=== PATIENT | male | born 1985 | race Caucasian/White ===

== ENCOUNTER 2023-09-20 14:31 | Outpatient (CLI) | payer BC, SELFPAY ==
--- NOTE | ~2023-09-20 | XR_ITS ---
[id number] 09/20/2023 14:47 Indication: Neck pain Procedure: 4 views cervical spine Comparison: No prior studies Findings: Normal cervical alignment. Vertebral body heights are maintained. No fracture or traumatic malalignment. There is mild uncinate hypertrophy at C3-4 and C4-5. No prevertebral soft tissue swelli ng. Odontoid process is normal. Lung apices are normal. Impression: 1: Mild cervical spondylosis. Reviewed, dictated and finalized at location L. Impression: 1: Mild cervical spondylosis.
[2023-09-20 19:16] LABS: Alanine Aminotransferase 27 U/L (6-50); Albumin Level 4.8 g/dL (3.5-5.1); Alkaline Phosphatase 54 U/L (38-126); Anion Gap 8 mmol/L (4-12); Aspartate Amino Transferase 49 U/L (17-59); Bilirubin,Total 0.7 mg/dL (0.2-1.3); Blood Urea Nitrogen 12 mg/dL (9-20); Calcium 9.5 mg/dL (8.4-10.2); Carbon Dioxide 27 mmol/L (22-30); Chloride 103 mmol/L (98-107); Cholesterol 201 mg/dL (0-200); Estimated Glomerular Filt Rate > 60; Glucose 83 mg/dL (65-110); HDL Direct 41 mg/dL; Potassium 3.9 mmol/L (3.4-5.0); Sodium 138 mmol/L (137-145); Triglycerides 189 mg/dL (<150)
[2023-09-20 19:26] LABS: LDL Cholesterol Direct 125 mg/dL
[2023-09-20 19:34] LABS: Hematocrit 47.1 % (42.0-52.0); Hemoglobin 15.4 g/dL (14.0-18.0); Mean Corpuscular HGB Conc 32.7 g/dl (32-36); Mean Corpuscular Hemoglobin 30.5 pg (26-34); Mean Corpuscular Volume 93.3 fl (80-100); Mean Platelet Volume 9.6 fl (7.4-10.4); Platelet Count Result 433 k/mm3 (150-375); Red Blood Count 5.05 M/mm3 (4.6-6.20); Red Cell Distribution Width 13.3 % (11.5-14.5); White Blood Count 9.3 K/mm3 (4.5-10.0)
[2023-09-20 19:41] LABS: Thyroid Stimulating Hormone 0.668 uIU/mL (0.465-4.680)
== END 2023-09-20 14:32 | disposition home or self-care (01) ==
PROVIDERS: PCP Nurse Practitioner Adult Health; Visit Provider Nurse Practitioner Adult Health
DX: Z13.9 Encounter for screening, unspecified (principal); M54.2 Cervicalgia; M43.02 Spondylolysis, cervical region
CPT/HCPCS: 36415; 72040; 80053; 80061; 84443; 85027

== ENCOUNTER 2024-05-19 16:05 | Emergency (ER) | payer BC, SELFPAY ==
--- NOTE | ~2024-05-19 | XR_ITS ---
XR hand RT min 3V Ordering provider: Nenita Jason APRN History: . pain rt hand, 4th metacarpal, injury . Comparison: None. FINDINGS: BONES: No acute fracture or dislocation. JOINT SPACES: Normal. SOFT TISSUES: Normal. IMPRESSION: No acute osseous abnormality right hand. Reviewed, dictated and finalized at location A. 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
[2024-05-19 16:10] VITALS: BP 168/90; PULSE 87; RESP 16; TEMP 36.3; O2SAT 99
--- NOTE | 2024-05-19 16:34 | ED_ITS ---
HPI - Extremity Injury (Upper) General Chief Complaint: Extremity Injury, Upper Stated Complaint: RT hand injury Time Seen by Provider: 05/19/24 16:20 Source: patient, RN notes reviewed and old records reviewed Mode of arrival: ambulatory Limitations: no limitations History of Present Illness HPI narrative: patient presents with complaints of right hand pain and swelling that has been present for 2 weeks. He reports that hand got caught in a rope that was tightening 2 weeks ago, he has had pain and mild swelling since. He has been taking ibuprofen with minimal relief. He retains full range of motion and s ensation to the affected hand. He voices no other concerns or complaints at this time. He he denies other injury and trauma. Related Data Allergies Allergy/AdvReac Type Severity Reaction Status Date / Time acetaminophen [From Percocet] AdvReac Severe Hallucinati Verified 05/19/24 16:34 ng oxycodone [From Percocet] AdvReac Severe Hallucinati Verified 05/19/24 16:34 ng Review of Systems Review of Systems: All systems reviewed & are unremarkable except as noted in HPI and below Constitutional: Constitutional: Reports no additional constitutional complaints ENT: Reports system reviewed and no additional complaints, except as documented Cardiovascular: Cardiovascular: Reports no additional cardiovascular complaints Respiratory: Respiratory: Reports no additional respiratory complaints Gastrointestinal: Gastrointestinal: Reports no additional gastrointestinal complaints Musculoskeletal: Musculoskeletal: Reports no additional musculoskeletal complaints and Reports as per HPI [facility] Past Medical History Medical History (Updated 05/19/24 @ 16:47 by Nenita Jason APRN) Anxiety Social History Social History Smoking status: Never smoker Alcohol intake: never Substance use type: does not use Lack of Transportation: No Lack of Food: Never True Current Housing: I Have Housing Concerned About Future Housing: No Difficulty Paying Gas/Electric Bills: No Difficulty Paying for Meds: No Currently Unemployed: No Education: High School Diploma/GED Difficulty w/ Childcare or Family Care: No Living arrangements: with family Occupation/Education: occupation Gender identity (if verbalized by the patient): Male Agree to blood products: Yes Comments At the time of my signature, I reviewed and agree with the nursing past medical, surgical, social, and family history. There is no relevant family history pertinent to the patient complaint. Exam Const: General: cooperative, no acute distress, alert and awake Orientation/consciousness: oriented to person, oriented to place and oriented to time HENMT: Head: normal to inspection Resp: Effort & Inspection: normal respiratory effort and able to speak in complete sentences Auscultation: clear to auscultation bilaterally, no crackles, no rales, no rhonchi and no wheezes Cardio: Palpation: normal PMI Rate: regular rate Rhythm: regular rhythm Heart sounds: S1 normal heart sound present and S2 normal heart sound present Neuro: General: oriented to person, oriented to place and oriented to time Cranial nerves: Yes CN's II-XII intact bilaterally Extrem: Right upper extremity: Extremity exam: right hand normal capillary refill, neuromotor exam normal, neurosensory exam normal and swelling ( Mild swelling to entire hand) Psych: Appearance: grossly normal Thought process: Normal thought process present Insight: Good insight present (Psych) Judgement: Good judgement present (Psych) Course Course Level of Care: Express Care Visit Vital Signs Vital signs: Vital Signs Temperature 97.3 F L 05/19/24 16:10 Pulse Rate 87 05/19/24 16:10 Respiratory Rate 16 05/19/24 16:10 Blood Pressure 168/90 H 05/19/24 16:10 Pulse Oximetry 99 05/19/24 16:10 Oxygen Delivery Room Air 05/19/24 16:10 Temperature 97.3 F L 05/19/24 16:10 Pulse Rate 87 05/19/24 16:10 Respiratory Rate 16 05/19/24 16:10 Blood Pressure 168/90 H 05/19/24 16:10 Pulse Oximetry 99 05/19/24 16:10 Oxygen Delivery Room Air 05/19/24 16:10 Reviewed MDM - Extremity Injury (Upper) MDM Narrative Medical decision making narrative: patient with mild swelling to entire right hand, normal motion, color, sensation. Has been taking ibuprofen. Start prednisone. Follow with primary care provider. Emergency department for new or worse symptoms. Advised to discuss elevated blood pressure with primary care Discharge instructions reviewed with patient, as well as provided in writing per nursing staff. The instructions also include specific and strict return/GO TO THE ER as well as f/u information. All questions have been answered, and the patient deny any further questions with discharge and discharge plan. Some parts of this dictation were generated by voice recognition software and may contain typographical and/or grammatical inaccuracies. Differential Diagnosis Differential diagnosis: Likely finger sprain and fracture of hand Medical Records Attestation: I reviewed the patient's medical records. Discharge Plan Discharge Clinical Impression: Elevated blood pressure reading Hand pain Qualifiers: Laterality: right Qualified Code(s): M79.641 - Pain in right hand Patient Disposition: Home, Self-Care Condition: Stable Instructions: Antibiotic Form, P.R.I.C.E. Treatment (ED) Prescriptions: New prednisone 50 mg tablet 50 mg PO DAILY Qty: 5 0RF No Action escitalopram oxalate 20 mg tablet 20 mg PO DAILY Qty: 90 0RF omeprazole 20 mg capsule,delayed release(DR/EC) 20 mg PO DAILY Qty: 90 3RF Follow-up/Referrals: Helene Gonzalez APRN [Primary Care Provider] - 1 Week Time of Disposition: 16:48
== END 2024-05-19 16:49 | disposition home or self-care (01) ==
PROVIDERS: Emergency Provider Nurse Practitioner Family; PCP Nurse Practitioner Adult Health
DX: R03.0 Elevated blood-pressure reading, without diagnosis of hypertension (principal); M79.641 Pain in right hand; F41.9 Anxiety disorder, unspecified
CPT/HCPCS: 73130; 99213; G0463

== ENCOUNTER 2025-04-09 17:40 | Emergency (ER) | payer BC, SELFPAY ==
[2025-04-09 17:52] VITALS: BP 146/79; PULSE 84; RESP 18; TEMP 36.3; O2SAT 100
--- NOTE | 2025-04-09 18:01 | ED.URI ---
HPI - URI/Sore Throat General Chief Complaint: Upper Respiratory Infection Stated Complaint: Sinus/cough Time Seen by Provider: 04/09/25 18:01 Source: patient Mode of arrival: ambulatory Limitations: no limitations History of Present Illness HPI Narrative: 40-year-old male presents with complaint of cough for the past 9-10 days. Patient's chin states started with sinus symptoms that have since resolved. Patient states feels similar to last time he had bronchitis. Requesting steroids and azithromycin. All systems reviewed and negative except as noted above. Related Data Allergies Allergy/AdvReac Type Severity Reaction Status Date / Time acetaminophen (From Percocet) AdvReac Severe Hallucinati Verified 04/09/25 17:53 ng oxycodone (From Percocet) AdvReac Severe Hallucinati Verified 04/09/25 17:53 ng PMFSH Past Medical History Medical History (Updated 04/09/25 @ 18:06 by Ella Scherer, SHIRLEY) Anxiety Social History Social History Smoking status: Never smoker Alcohol intake: never Substance use type: does not use Lack of Transportation: No Lack of Food: Never True Current Housing: I Have Housing Concerned About Future Housing: No Difficulty Paying Gas/Electric Bills: No Difficulty Paying for Meds: No Currently Unemployed: No Education: High School Diploma/GED Difficulty w/ Childcare or Family Care: No Living arrangements: with family Occupation/Education: occupation Gender identity (if verbalized by the patient): Male Agree to blood products: Yes Comments At time of signature, agree with nursing past medical, surgical, social and family history. There is no relevant family history pertinent to the presenting complaint. Exam Narrative: GENERAL: This is a well-nourished, well-developed patient, in no apparent distress. HEAD: normocephalic, atraumatic. EYES: PERRL. Sclera clear/white. Vision is grossly intact. EARS: External ears normal, auditory canals clear and without drainage, TMs normal without perforation. Hearing grossly intact. NOSE: External nose normal with no obvious nasal discharge, nares without redness, no rhinorrhea. THROAT: Mucous membranes moist, posterior pharynx clear. NECK: Neck supple, non-tender without lymphadenopathy, masses or thyromegaly. CARDIOVASCULAR: Regular rate and rhythm without murmurs, gallops, or rubs. RESPIRATORY: Clear to auscultation. Breath sounds equal bilaterally. No wheezes, rales, or rhonchi. SKIN: warm, Dry, intact with no suspicious lesions or rash, good texture and turgor. NEURO: awake, alert, and oriented to person, place and time. There were no obvious focal neurologic abnormalities. EXTREMITIES: No joint tenderness, effusion, or edema noted. Course Course Level of Care: Express Care Visit Vital Signs Vital signs: Vital Signs Temperature 36.3 C L 04/09/25 17:52 Pulse Rate 84 04/09/25 17:52 Respiratory Rate 18 04/09/25 17:52 Blood Pressure 146/79 H 04/09/25 17:52 Pulse Oximetry 100 04/09/25 17:52 Oxygen Delivery Room Air 04/09/25 17:52 Temperature 36.3 C L 04/09/25 17:52 Pulse Rate 84 04/09/25 17:52 Respiratory Rate 18 04/09/25 17:52 Blood Pressure 146/79 H 04/09/25 17:52 Pulse Oximetry 100 04/09/25 17:52 Oxygen Delivery Room Air 04/09/25 17:52 reviewed MDM - URI/Sore Throat MDM Narrative Medical decision making narrative: patient is well-appearing, nontoxic. Oxygen saturation 100% rib. Reports constant coughing. Patient going on a hunting trip and requesting antibiotic. Differential Diagnosis Differential diagnosis: Likely upper respiratory infection, sinusitis, viral infection and bronchitis Discharge Plan Discharge Clinical Impression: Acute bronchitis Patient Disposition: Home Condition: Stable Instructions: Antibiotic Form Patient Language: Omani Prescriptions: New doxycycline hyclate 100 mg capsule 100 mg PO BID 7 Days Qty: 14 0RF benzonatate 200 mg capsule 200 mg PO TID PRN (Reason: cough) Qty: 20 0RF prednisone 20 mg tablet 40 mg PO DAILY 5 Days Qty: 10 0RF albuterol sulfate 90 mcg/actuation HFA aerosol inhaler 2 puff inhalation Q4-6H PRN (Reason: shortness of breath or wheezing) Qty: 8.5 0RF (DME) Aerochamber Plus Z Stat Spacer See Rx Instructions .Route Qty: 1 0RF Rx Instructions: As directed No Action escitalopram oxalate 20 mg tablet See Rx Instructions .ROUTE .COMPLEX Qty: 90 1RF Dose Instruction: TAKE 1 TABLET BY MOUTH EVERY DAY Rx Instructions: TAKE 1 TABLET BY MOUTH EVERY DAY omeprazole 20 mg capsule,delayed release(DR/EC) 20 mg PO DAILY Qty: 90 3RF Follow-up/Referrals: Helene Gonzalez APRN [Primary Care Provider, [facility]] Time of Disposition: 18:06
--- OUTSIDE RECORDS SUMMARY | 2025-04-09 18:07 | XMS_ITS | Clinical Summary ---
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 Legal Sex Male 9:04 PM CDT Gender Identity Not on file Sexual Orientation Not on file Last Filed Vital Signs Vital Sign Reading Time Taken Comments Blood Pressure 162/94 07/20/2024 5:04 PM AUTOMATIC SERGING MACHINE OPERATOR Pulse 83 07/20/2024 5:04 PM AUTOMATIC SERGING MACHINE OPERATOR Temperature 37.1 C (98.7 F) 07/20/2024 5:04 PM AUTOMATIC SERGING MACHINE OPERATOR Respiratory Rate 18 07/20/2024 5:04 PM AUTOMATIC SERGING MACHINE OPERATOR Oxygen Saturation 99% 07/20/2024 5:04 PM AUTOMATIC SERGING MACHINE OPERATOR Inhaled Oxygen Concentration - - Weight 96.2 kg (212 lb) 07/20/2024 5:04 PM AUTOMATIC SERGING MACHINE OPERATOR Height 180.3 cm (5' 11) 07/20/2024 5:04 PM AUTOMATIC SERGING MACHINE OPERATOR Body Mass Index 29.57 07/20/2024 5:04 PM AUTOMATIC SERGING MACHINE OPERATOR Plan of Treatment Health Maintenance Due Date Last Done Comments Annual Physical 01/10/1987 Hepatitis C 01/10/2002 Hepatitis B Vaccines (1 of 3 - 19+ 3-dose series) 01/10/2003 HPV Vaccines (1 - 3-dose SCD M series) 01/10/2011 COVID-19 Vaccine (2023-2 5 season) 2025 Influenza Adult (#1) 2025 DTaP, Tdap and Td Vaccines ( 3 - Td or Tdap) 11/19/2028 11/19/2018, 06/25/2011 Meningococcal B Vaccine Aged Out No l onger eligible based on patient's age to complete this topic Meningococcal Vaccine Aged Out No raghavendra sayda eligible based on patient's age to complete this topic Pneumococcal Vaccine: Pediatrics (0 to 5 Years) and At-Risk Patients (6 to 49 Years) Aged Out No longer eligible b ased on patient's age to complete this topic RSV Immunizations Under 20 Months Aged Out No longer eligible b ased on patient's age to complete [place] [address] [facility] Care Teams Airline Dispatcher Relationship Specialty Start Date End Date Helene Gonzalez NP [address] [place] [address] PCP - General NURSE PRACTITIONER 07/07/21
== END 2025-04-09 18:09 | disposition home or self-care (01) ==
PROVIDERS: Emergency Provider Nurse Practitioner Family; PCP Nurse Practitioner Adult Health
DX: J40 Bronchitis, not specified as acute or chronic (principal)
CPT/HCPCS: 99213; G0463